=== PATIENT | male | born 1975 | race Caucasian/White ===

== ENCOUNTER 2020-08-02 10:02 | Inpatient (IN) | payer SELFPAY ==
[~2020-08-02 10:02] MED LIST: Dexamethasone 20 MG/5 ML VIAL ONE; Ketorolac Tromethamine 30 MG/ML VIAL ONE; Lidocaine 1% PF 5 ML VIAL ONE; Ondansetron PF 4 MG/2 ML Vial ONE; PROPOFOL 200 MG/20 ML VIAL ONE; Rocuronium Bromide 10 MG/ML (10ML VIAL) ONE
[2020-08-02 10:30] LABS: #Basophils 0.3 thou/uL (0.0-0.2); #Eosinphils 0.4 thou/uL (0.0-0.7); #Lymphocytes 3.7 thou/uL (1.20-3.40); #Monocytes 1.4 thou/uL (0.11-0.59); #Neutrophils 12.3 thou/uL (1.40-6.50); %Basophils 1.5 % (0.0-1.0); %Eosinophils 2.4 % (0.0-10.0); %Lymphocytes 20.4 % (21.0-51.0); %Monocytes 7.9 % (0.0-10.0); %Neutrophils 67.8 % (42.0-75.0); Hemoglobin 14.1 g/dL (14.0-18.0); Mean Corpuscular HGB CONC 31.9 g/dL (32.0-36.0); Mean Corpuscular Hemoglobin 29.3 pg (27.0-31.0); Mean Corpuscular Volume 91.9 fL (78.0-98.0); Platelet Count 239 thou/uL (130-400); RBC Distribution Width 12.5 % (11.5-14.5); Red Blood Cell (RBC) Count 4.81 mill/uL (4.70-6.10); White Blood Cell (WBC) Count 18.2 thou/uL (4.8-10.8)
[2020-08-02 10:56] LABS: ALT (SGPT) 51 U/L (8-55); AST (SGOT) 17 U/L (5-34); Alkaline Phosphatase 82 U/L (40-110); Anion Gap 12 mmol/L (10-20); BUN (Urea Nitrogen) 18 mg/dL (8.9-20.6); Bilirubin, Total 0.2 mg/dL (0.2-1.2); Calc. Creatinine Clearance 0 mL/min (70-130); Calcium 8.6 mg/dL (7.8-10.44); Carbon Dioxide 28 mmol/L (22-29); Chloride 102 mmol/L (98-107); Globulin 2.9 g/dL (2.4-3.5); Glucose 116 mg/dL (70-105); Potassium 4.1 mmol/L (3.5-5.1); Protein, Total 6.9 g/dL (6.0-8.3); Sodium 138 mmol/L (136-145)
--- NOTE | 2020-08-02 11:05 | RAD ---
EXAM: XR Ankle Lt 3 View STANDARD PROVIDED CLINICAL HISTORY: Trauma COMPARISON: None FINDINGS: There is a minimally displaced fracture involving the base of the medial malleolus. No additional fra cture is evident. Alignment appears otherwise anatomic. Joint spaces appear preserved. IMPRESSION: Minimally displaced medial malleolar fracture. Correlation with left foreleg radiographs recommended to exclude proximal fibular fracture.
--- NOTE | 2020-08-02 11:12 | RAD ---
EXAM: XR Knee Lt 4 View STANDARD PROVIDED CLINICAL HISTORY: Pain status post injury FINDINGS: There is no evidence for fracture or other acute osseous abnormality. Alignment appears anatomic. Funmilayo nt spaces appear preserved. There is an ovoid radiodensity overlying the proximal foreleg on the frontal and oblique views, not visualized on the lateral and presumably external to the patient. IMPRESSION: No evidence for an acute osseous abnormality. If there is persistent clinical concern, conservative m anagement and follow-up imaging advised.
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
--- NOTE | 2020-08-02 11:16 | RAD ---
EXAM: XR Tib Fib Lt Leg 2 View PROVIDED CLINICAL HISTORY: Trauma FINDINGS: The obliquity of the frontal radiographs limits evaluation. Medial malleolar fracture described on co ncurrent ankle radiographs. There is no evidence for additional fracture or other acute osseous abnormality. Alignment appears anatomic. Joint spaces appear preserved. There is a ovoid radiodensity measuring approximately 6 mm at the posterior aspect of the left proximal foreleg overlying the soft tissues. Correlate with concerns for foreign body. IMPRESSION: Known medial malleolar fracture. Possible foreign body. No evidence for an additional acute osseous a bnormality. If there is persistent clinical concern, conservative management and follow-up imaging advised.
[2020-08-02] MEDS ORDERED: Morphine 4 MG/ML VIAL ONE (11:32)
[2020-08-02] MEDS ORDERED: CEFAZOLIN 1 GM VIAL ONE (11:32)
[2020-08-02] MEDS ORDERED: CEFAZOLIN 2 GM in Premix Bag 1 BAG IVPB SCH (11:45)
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
[2020-08-02] MEDS ORDERED: Bupivacaine PF 0.5% 30 ML VIAL ONE ×2 (12:49→15:16)
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
[2020-08-02 12:56] LABS: Bilirubin Negative (Negative); Blood, Urine Negative (Negative); Clarity Clear (Clear); Glucose, Urine (Dipstick) Normal (Negative); Ketone, Urine Negative (Negative); Leukocyte Negative Leu/uL (Negative); Nitrite Negative (Negative); Protein, Urine (Dipstick) Negative (Neg-Trace); Specific Gravity, Urine 1.023 (1.002-1.036); Urobilinogen Normal mg/dL (Less than 2)
[2020-08-02 13:05] LABS: SARS-CoV-2 NAA Rapid Test Not Detected (NotDetected)
[2020-08-02] MEDS ORDERED: Dextrose 5% in Water 1,000 ML IV PRN (13:41)
[2020-08-02] MEDS ORDERED: Ondansetron ODT 4 MG TAB PO PRN (13:41)
[2020-08-02] MEDS ORDERED: Ondansetron PF 4 MG/2 ML Vial IVP PRN (13:41)
[2020-08-02] MEDS ORDERED: hydrALAZINE 20 MG/ML VIAL SLOW IVP PRN (13:41)
[2020-08-02] MEDS ORDERED: Morphine 2 MG/ML VIAL SLOW IVP PRN (13:41)
[2020-08-02] MEDS ORDERED: Morphine 4 MG/ML VIAL SLOW IVP PRN ×2 (13:41→18:49)
[2020-08-02] MEDS ORDERED: Dextrose 50% Abboject 50 ML SYRINGE SLOW IVP PRN (13:41)
[2020-08-02] MEDS ORDERED: traMADol HCl 50 MG TAB PO PRN ×2 (13:46)
[2020-08-02] MEDS ORDERED: Fentanyl 100 MCG/2 ML VIAL ONE (14:28)
[2020-08-02] MEDS ORDERED: Midazolam HCl 2 mg/2 ml Vial ONE (14:28)
[2020-08-02 14:38] LABS: Phosphorus 2.5 mg/dL (2.3-4.7)
[2020-08-02] MEDS ORDERED: SUGAMMADEX SODIUM 200 MG/2 ML VIAL ONE (15:17)
--- NOTE | 2020-08-02 15:39 | RAD ---
LEFT ANKLE 3 VIEWS: Date: 08/02/2020 HISTORY: Intraoperative films. FINDINGS: A series of C-arm images show open reduction and internal fixation of medial malleolar fracture with two screws. IMPRESSION: Fixation of medial malleolar fracture. POS: OFF
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
[2020-08-02] MEDS: Sodium Chloride 0.9% 1,000 ML IV SCH (17:21)
[2020-08-02] MEDS: Acetaminophen 500 MG TAB PO SCH ×2 (17:21→20:12)
[2020-08-02 17:32] VITALS: BMI 23.6
[2020-08-02] MEDS ORDERED: Ketorolac Tromethamine 30 MG/ML VIAL IVP SCH (18:00)
[2020-08-02] MEDS: Famotidine 20 MG TAB PO SCH (20:12)
[2020-08-02] MEDS: Senokot S 8.6-50 MG TAB PO SCH (20:12)
[2020-08-02] MEDS: Ketorolac Tromethamine 30 MG/ML VIAL IVP SCH (20:12)
[2020-08-02] MEDS: CEFAZOLIN 2 GM in Premix Bag 1 BAG IVPB SCH (22:43)
[2020-08-03] MEDS ORDERED: Acetaminophen/Codeine 30-300mg Tablet PO PRN (01:35)
[2020-08-03] MEDS: Acetaminophen/Codeine 30-300mg Tablet PO PRN ×2 (01:43→08:19)
[2020-08-03] MEDS: Acetaminophen 325 MG TAB PO SCH ×2 (01:44→08:15)
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
[2020-08-03] MEDS: Sodium Chloride 0.9% 1,000 ML IV SCH ×2 (05:27→05:49)
[2020-08-03] MEDS: Ketorolac Tromethamine 30 MG/ML VIAL IVP SCH (05:28)
[2020-08-03] MEDS: CEFAZOLIN 2 GM in Premix Bag 1 BAG IVPB SCH (05:29)
[2020-08-03 06:00] LABS: Hemoglobin 13.3 g/dL (14.0-18.0); Mean Corpuscular HGB CONC 32.7 g/dL (32.0-36.0); Mean Corpuscular Hemoglobin 30.2 pg (27.0-31.0); Mean Corpuscular Volume 92.4 fL (78.0-98.0); Mean Platelet Volume 8.4 fL (7.4-10.4); Platelet Count 229 thou/uL (130-400); RBC Distribution Width 12.5 % (11.5-14.5); Red Blood Cell (RBC) Count 4.39 mill/uL (4.70-6.10); White Blood Cell (WBC) Count 21.1 thou/uL (4.8-10.8)
[2020-08-03 06:06] LABS: Anion Gap 13 mmol/L (10-20); BUN (Urea Nitrogen) 16 mg/dL (8.9-20.6); Calc. Creatinine Clearance 115 mL/min (70-130); Calcium 8.3 mg/dL (7.8-10.44); Carbon Dioxide 26 mmol/L (22-29); Chloride 104 mmol/L (98-107); Glucose 153 mg/dL (70-105); Magnesium 2.2 mg/dL (1.6-2.6); Potassium 4.4 mmol/L (3.5-5.1); Sodium 139 mmol/L (136-145)
[2020-08-03 06:08] LABS: Phosphorus 2.9 mg/dL (2.3-4.7)
[2020-08-03 06:18] LABS: Band 7 % (5-11); Lymphocytes 12 % (21-51); MDiff Complete? YES; Monocytes 8 % (0-10); Neutrophil 71 % (42-75); Reactive Lymphocytes 2 % (0-10)
[2020-08-03] MEDS: Famotidine 20 MG TAB PO SCH (08:15)
[2020-08-03] MEDS: Senokot S 8.6-50 MG TAB PO SCH (08:16)
[2020-08-03 08:58] VITALS: TEMP 98
[2020-08-03] MEDS ORDERED: Polyethylene Glycol 3350 17 GM Packet PO SCH (09:00)
[2020-08-03 13:08] VITALS: BP 128/81
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
== END 2020-08-03 14:54 | disposition home or self-care (01) | DRG 494 ==
LOC: ERS 10:02 → ERHOLD 12:40 → SURG A 13:44
PROVIDERS: ADMIT Surgery; ATTEND Surgery
PROC: 0QSH04Z Reposition Left Tibia with Internal Fixation Device, Open Approach (ICD-10-PCS; principal; 2020-08-02)
DX: S82.52XB Displaced fracture of medial malleolus of left tibia, initial encounter for open fracture type I or II (principal); Z20.822 Contact with and (suspected) exposure to COVID-19; I10 Essential (primary) hypertension; F17.210 Nicotine dependence, cigarettes, uncomplicated; V23.4XXA Motorcycle driver injured in collision with car, pick-up truck or van in traffic accident, initial encounter; Y92.410 Unspecified street and highway as the place of occurrence of the external cause; Z79.899 Other long term (current) drug therapy; Z82.49 Family history of ischemic heart disease and other diseases of the circulatory system; Z83.3 Family history of diabetes mellitus; Z80.8 Family history of malignant neoplasm of other organs or systems
CPT/HCPCS: 36415; 71045; 72170; 76000; 80048; 80053; 81003; 83735; 84100; 85025; 93005; C1713; G0390; J0690; J1100; J1885; J2001; J2250; J2270; J2405; J2704; J3010; S0020; U0002